=== PATIENT | male | born 1985 | race Caucasian/White ===

== ENCOUNTER 2023-04-08 16:10 | Emergency (ER) | payer MEDICAID ==
[~2023-04-08] VITALS: Ht 180.3 cm; Wt 119.8 kg
[2023-04-08] MEDS: KETOROLAC TROMETH 60MG/2ML VIAL IM ONE (17:08)
[2023-04-08] MEDS: TETANUS-DIPTH-ACEL PERTUSSIS 0.5ML SYR Tdap IM ONE (17:10)
[2023-04-08 18:59] VITALS: BP 119/77; PULSE 73; RESP 18; TEMP 98.3; O2SAT 98
== END 2023-04-08 19:00 | disposition home or self-care (01) ==
LOC: ER 16:10
DX: S01.01XA Laceration without foreign body of scalp, initial encounter (principal); Z88.1 Allergy status to other antibiotic agents; W18.09XA Striking against other object with subsequent fall, initial encounter; Y93.89 Activity, other specified; Y92.89 Other specified places as the place of occurrence of the external cause; Y99.8 Other external cause status
CPT/HCPCS: 12002; 70450; 90471; 90715; 96372; 99285; J1885